=== PATIENT | male | born 1985 | race Asian ===

== ENCOUNTER → 2017-03-02 | Outpatient (CLI) | payer OTHER ==
[2017-03-02 11:51] LABS: BASOPHIL % 0.5 % (0-2); PLATELET COUNT 331 x10^3mcL (130-400); RED CELL DISTRIBUTION WIDTH 12.4 % (11.5-14.5)
[2017-03-02 12:06] LABS: ALBUMIN 4.3 g/dL (3.4-5.0); ALKALINE PHOSPHATASE 67 U/L (46-116); ALT/SGPT 20 U/L (16-63); AST/SGOT 10 U/L (15-37); BILIRUBIN DIRECT 0.21 mg/dL (0.0-0.2); BILIRUBIN TOTAL 0.9 mg/dL (0.20-1.00); CALCIUM 9.4 mg/dL (8.5-10.1); CARBON DIOXIDE 29.5 mmol/L (21-32); CHLORIDE SERUM 104 mmol/L (98-107); CHOLESTEROL 196 mg/dL (<200); CHOLESTEROL/HDL RATIO 3.3; CREATININE SERUM 1.1 mg/dL (0.7-1.3); GFR1 > 60 mL/min; GLUCOSE SERUM 98 mg/dL (74-106); HDL CHOLESTEROL 59 mg/dL (40-60); POTASSIUM SERUM 4.3 mmol/L (3.5-5.1); SODIUM SERUM 139 mmol/L (136-145); TRIGLYCERIDES 59 mg/dL (<150)
== END | disposition home or self-care (01) ==
LOC: LB 11:28
PROVIDERS: Internal Medicine
DX: Z00.00 Encounter for general adult medical examination without abnormal findings (principal)

== ENCOUNTER 2017-08-19 18:29 | Emergency (ER) | payer OTHER ==
[~2017-08-19] VITALS: Ht 172.7 cm; Wt 61.2 kg
[2017-08-19 18:33] VITALS: Ht 172.7 cm; Wt 61.2 kg
[2017-08-19 19:02] VITALS: BP 141/87
== END 2017-08-19 19:02 | disposition home or self-care (01) ==
LOC: ED 18:29
DX: S60.411A Abrasion of left index finger, initial encounter (principal); W46.0XXA Contact with hypodermic needle, initial encounter; Y93.89 Activity, other specified; Y92.89 Other specified places as the place of occurrence of the external cause; Y99.8 Other external cause status

== ENCOUNTER → 2017-11-01 | Outpatient (CLI) | payer OTHER ==
[2017-11-01 10:26] LABS: BASOPHIL % 0.5 % (0-2); PLATELET COUNT 333 x10^3mcL (130-400); RED CELL DISTRIBUTION WIDTH 12.6 % (11.5-14.5)
[2017-11-01 11:02] LABS: ALBUMIN 4.2 g/dL (3.4-5.0); ALKALINE PHOSPHATASE 63 U/L (46-116); ALT/SGPT 22 U/L (16-63); AST/SGOT 15 U/L (15-37); BILIRUBIN DIRECT 0.16 mg/dL (0.0-0.2); BILIRUBIN TOTAL 0.76 mg/dL (0.20-1.00); CALCIUM 9.3 mg/dL (8.5-10.1); CARBON DIOXIDE 27.8 mmol/L (21-32); CHLORIDE SERUM 106 mmol/L (98-107); CHOLESTEROL 171 mg/dL (<200); CHOLESTEROL/HDL RATIO 3.2; CREATININE SERUM 1.1 mg/dL (0.7-1.3); GFR1 > 60 mL/min; GLUCOSE SERUM 94 mg/dL (74-106); HDL CHOLESTEROL 54 mg/dL (40-60); POTASSIUM SERUM 4.3 mmol/L (3.5-5.1); SODIUM SERUM 141 mmol/L (136-145); TOTAL PROTEIN, SERUM 7.5 g/dL (6.4-8.2); TRIGLYCERIDES 58 mg/dL (<150)
[2017-11-02 09:04] LABS: MUMPS AB IGG 72.3 AU/mL (Immune >10.9)
== END | disposition home or self-care (01) ==
LOC: LB 09:57
PROVIDERS: Internal Medicine
DX: Z00.00 Encounter for general adult medical examination without abnormal findings (principal)
CPT/HCPCS: 86787

== ENCOUNTER 2018-07-21 19:24 | Emergency (ER) | payer OTHER ==
[~2018-07-21] VITALS: Ht 172.7 cm; Wt 63.5 kg
[2018-07-21 19:26] VITALS: Ht 172.7 cm; Wt 63.5 kg
[2018-07-21 19:54] VITALS: BP 129/77
== END 2018-07-21 19:54 | disposition home or self-care (01) ==
LOC: ED 19:24
DX: J11.1 Influenza due to unidentified influenza virus with other respiratory manifestations (principal)
CPT/HCPCS: 87804; Q0162

== ENCOUNTER → 2019-05-27 | Outpatient (CLI) | payer OTHER ==
[2019-05-27 13:19] LABS: CARBON DIOXIDE 29.1 mmol/L (21-32); CHLORIDE SERUM 106 mmol/L (98-107); GFR1 > 60 mL/min; GLUCOSE SERUM 95 mg/dL (74-106); POTASSIUM SERUM 4.3 mmol/L (3.5-5.1); SODIUM SERUM 141 mmol/L (136-145); TOTAL PROTEIN, SERUM 7.1 g/dL (6.4-8.2)
[2019-05-27 13:20] LABS: ALKALINE PHOSPHATASE 63 U/L (46-116); ALT/SGPT 79 U/L (16-63); AST/SGOT 58 U/L (15-37); BILIRUBIN DIRECT 0.17 mg/dL (0.0-0.2); BILIRUBIN TOTAL 0.77 mg/dL (0.20-1.00); CALCIUM 9.1 mg/dL (8.5-10.1); CHOLESTEROL 184 mg/dL (<200); CHOLESTEROL/HDL RATIO 2.6; HDL CHOLESTEROL 70 mg/dL (40-60); TRIGLYCERIDES 63 mg/dL (<150)
[2019-05-27 13:30] LABS: BASOPHIL % 0.9 % (0-2); PLATELET COUNT 312 x10^3mcL (130-400); RED CELL DISTRIBUTION WIDTH 14.1 % (11.5-14.5)
== END | disposition home or self-care (01) ==
LOC: LB 12:39
PROVIDERS: Internal Medicine
DX: Z00.00 Encounter for general adult medical examination without abnormal findings (principal)

== ENCOUNTER → 2019-06-04 | Outpatient (CLI) | payer OTHER | END | disposition home or self-care (01) | LOC: LB 13:50 | DX: R74.0 Nonspecific elevation of levels of transaminase and lactic acid dehydrogenase [LDH] (principal) ==

== ENCOUNTER 2019-10-27 09:47 | Emergency (ER) | payer OTHER, SELFPAY ==
[~2019-10-27] VITALS: Ht 172.7 cm; Wt 63.5 kg
[2019-10-27 10:01] VITALS: BP 136/89; Ht 172.7 cm; Wt 63.5 kg
== END 2019-10-27 11:21 | disposition home or self-care (01) ==
LOC: ED 09:47
DX: U07.1 COVID-19 (principal); B34.9 Viral infection, unspecified; Z76.0 Encounter for issue of repeat prescription
CPT/HCPCS: J8540; U0003-CS